=== PATIENT | female | born 1985 | race Caucasian/White ===

== ENCOUNTER 2018-01-02 14:27 | Emergency (ER) | payer SELFPAY ==
[~2018-01-02] VITALS: Ht 152.4 cm; Wt 50.0 kg
[2018-01-02 14:37] VITALS: BP 107/65; PULSE 105; RESP 15; TEMP 98.9; O2SAT 96; O2SAT 98
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
[2018-01-02] MEDS ORDERED: VANCOMYCIN INJ 1,000 MG in SODIUM CHLOR 0.9% 250 ML INJ 250 ML IV ONE (14:45)
[2018-01-02] MEDS ORDERED: SODIUM CHLOR 0.9% 1000 ML INJ 1,000 ML IV ONE ×2 (14:45→16:30)
[2018-01-02] MEDS ORDERED: SODIUM CHLORIDE 0.9% FLUSH 10 ML FLUSH IV FLUSH PRN (14:45)
[2018-01-02 15:32] VITALS: BP 124/90; PULSE 100; RESP 15; O2SAT 98
[2018-01-02 15:33] LABS: AUTOMATED NEUTROPHIL # 12.4 TH/MM3 (1.8-7.7); BASOPHIL % 0.2 % (0.0-2.0); EOSINOPHIL # 0.1 TH/MM3 (0-0.4); EOSINOPHIL % 0.8 % (0.0-4.0); HEMATOCRIT 37.1 % (35.0-46.0); HEMOGLOBIN 12.2 GM/DL (11.6-15.3); LYMPH % 10.7 % (9.0-44.0); LYMPHOCYTE # 1.7 TH/MM3 (1.0-4.8); MEAN CELL VOLUME 85.5 FL (80.0-100.0); MEAN CORPUSCULAR HEMOGLOBIN 28.1 PG (27.0-34.0); MEAN CORPUSCULAR HGB CONC 32.9 % (32.0-36.0); MEAN PLATELET VOLUME 7.6 FL (7.0-11.0); MONO % 8.1 % (0.0-8.0); MONOCYTE # 1.2 TH/MM3 (0-0.9); NEUT % 80.2 % (16.0-70.0); PLATELET COUNT 497 TH/MM3 (150-450); RED BLOOD COUNT 4.34 MIL/MM3 (4.00-5.30); RED CELL DISTRIBUTION WIDTH 13.9 % (11.6-17.2); WHITE BLOOD COUNT 15.5 TH/MM3 (4.0-11.0)
[2018-01-02 15:42] LABS: BACTERIA, URINE RARE /hpf; BILIRUBIN, URINE NEG (NEG); BLOOD, URINE NEG (NEG); GLUCOSE,URINE NEG (NEG); HYALINE CAST, URINE 3 /lpf (RARE); KETONE, URINE NEG (NEG); MUCUS URINE FEW /lpf (OCC); NITRITE,URINE NEG (NEG); SQUAMOUS EPITHELIAL CELL URINE 23 /hpf (0-5); URINE COLOR YELLOW (YELLW/STRAW); URINE LEUKOCYTE ESTERASE TRACE (NEG)
[2018-01-02 15:43] LABS: INTERNATIONAL NORMALIZED RATIO 1.1 RATIO; PROTHROMBIN TIME - PATIENT 10.9 SEC (9.8-11.6)
--- NOTE | 2018-01-02 16:19 | RADRPT ---
EXAM DATE: 01/02/2018 4:14 PM EDT AGE/SEX: 32 years / Female INDICATIONS: swollen 1st right digit. Unknown injury CLINICAL DATA: This is the patient's initial encounter. Patient reports that signs and symptoms have been present for 2 days and indicates a pain score of 5/10. MEDICAL/SURGICAL HISTORY: None. None. COMPARISON: No prior [place] exams available for comparison. FINDINGS: Bony structures are intact and in normal alignment. Osseous density is normal. Soft tissues are unre markable. No radiopaque foreign bodies seen. Small ossific density along the medial aspect of the fi rst proximal phalangeal bone CONCLUSION: Negative examination except for small ossific area along the medial edge of the first proximal phalan geal bone. Electronically signed by: Sean Enrique MD 01/02/2018 4:17 PM EDT
--- NOTE | 2018-01-02 16:21 | RADRPT ---
EXAM DATE: 01/02/2018 4:12 PM EDT AGE/SEX: 32 years / Female INDICATIONS: short of breath CLINICAL DATA: This is the patient's initial encounter. Patient reports that signs and symptoms have been present for 1 day and indicates a pain score of 0/10. MEDICAL/SURGICAL HISTORY: None. None. COMPARISON: No prior [place] exams available for comparison. FINDINGS: A single AP view of the chest demonstrates the lungs to be symmetrically aerated without evidence of mass, infiltrate or effusion except for platelike atelectasis in the midlung [place] bilaterally left greater than right. The cardiomediastinal contours are unremarkable. Osseous structures are intact. CONCLUSION: Platelike atelectasis left greater than right in the mid lung murillo. Electronically signed by: Sean Enrique MD 01/02/2018 4:20 PM EDT
[2018-01-02 16:24] LABS: ALBUMIN 3.2 GM/DL (3.4-5.0); AST (GOT) 7 U/L (15-37); BICARBONATE 28.4 MEQ/L (21.0-32.0); BLOOD UREA NITROGEN 10 MG/DL (7-18); CALCIUM 9.2 MG/DL (8.5-10.1); CHLORIDE 101 MEQ/L (98-107); CREATININE 0.61 MG/DL (0.50-1.00); GLOMERULAR FILTRATION RATE 113 ML/MIN (>89); GLUCOSE,RANDOM 108 MG/DL (74-106); SODIUM (NA) 137 MEQ/L (136-145)
[2018-01-02 16:25] LABS: ALT (GPT) 17 U/L (10-53)
[2018-01-02 16:27] LABS: ALKALINE PHOSPHATASE 67 U/L (45-117); TOTAL BILIRUBIN ADULT 0.4 MG/DL (0.2-1.0); TOTAL PROTEIN 7.5 GM/DL (6.4-8.2)
[2018-01-02 16:31] LABS: ACETAMINOPHEN LESS THAN 2.0 MCG/ML (10.0-30.0)
[2018-01-02] MEDS ORDERED: NALOXONE HCL 0.4 MG/ML AMP IV PUSH ONE (16:45)
[2018-01-02 18:00] VITALS: BP 116/69; PULSE 92; RESP 18; O2SAT 97
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
--- NOTE | 2018-01-02 22:20 | RADRPT ---
EXAM DATE: 01/02/2018 10:18 PM EDT AGE/SEX: 32 years / Female INDICATIONS: Patient is complaining of chest pain. CLINICAL DATA: This is the patient's initial encounter. Patient reports that signs and symptoms have been present for 3 days and indicates a pain score of 10/10. MEDICAL/SURGICAL HISTORY: None. None. COMPARISON: [facility] [place], CHEST SINGLE AP, 01/02/2018. . FINDINGS: There is bandlike opacity in the left midlung again seen slightly more patchy on the current study myers ggesting evolving airspace disease and atelectasis. Heart size normal. Osseous structures are intact. CONCLUSION: Increasing left midlung opacity. Electronically signed by: Darin López MD 01/02/2018 10:19 PM EDT
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
[2018-01-02] MEDS ORDERED: IOHEXOL 350 MG/ML 10 ML VIAL (for RAD DIAG) IVCONTRAST ONE (23:11)
--- NOTE | 2018-01-02 23:15 | RADRPT ---
EXAM DATE: 01/02/2018 11:05 PM EDT AGE/SEX: 32 years / Female INDICATIONS: Patient found unresponsive, possible overdose. CLINICAL DATA: This is the patient's initial encounter. Patient reports that signs and symptoms have been present for 1 day and indicates a pain score of Nonresponsive. MEDICAL/SURGICAL HISTORY: Non-responsive. Non-responsive. RADIATION DOSE: 56.35 CTDI (mGy) COMPARISON: No prior [place] exams available for comparison. TECHNIQUE: CT of the head without contrast. Using automated exposure control and adjustment of the mA and/or kV according to patient size, radiation dose was kept as low as reasonably achievable to ob tain optimal diagnostic quality images. FINDINGS: Cerebrum: The ventricles are normal for age. No evidence of midline shift, mass lesion, hemorrhage or acute infarction. No extraaxial fluid collections are seen. Posterior Fossa: The cerebellum and brainstem are intact. The 4th ventricle is midline. The cerebe llopontine angle is unremarkable. Extracranial: The visualized portion of the orbits is intact. Skull: The calvaria is intact. No evidence of skull fracture. CONCLUSION: 1. Unremarkable CT scan of the brain. Electronically signed by: Jairo Hatfield MD 01/02/2018 11:13 PM EDT
--- NOTE | 2018-01-02 23:16 | RADRPT ---
EXAM DATE: 01/02/2018 11:06 PM EDT AGE/SEX: 32 years / Female INDICATIONS: Patient found unresponsive, possible overdose. CLINICAL DATA: This is the patient's initial encounter. Patient reports that signs and symptoms have been present for 1 day and indicates a pain score of Nonresponsive. MEDICAL/SURGICAL HISTORY: Non-responsive. Non-responsive. RADIATION DOSE: 17.61 CTDI (mGy) COMPARISON: No prior [place] exams available for comparison. TECHNIQUE: Contiguous axial images were obtained using helical multirow detector technique. The vol umetric data was post-processed with multiplanar reconstruction in oblique axial, sagittal, and coron al planes. Using automated exposure control and adjustment of the mA and/or kV according to patient s ize, radiation dose was kept as low as reasonably achievable to obtain optimal diagnostic quality sharron ges. FINDINGS: Vertebrae: Normal vertebral body height. No acute bony fractures. Alignment: Normal. No subluxation. C2-3: The bony spinal canal is normal in size. No evidence of disc bulge or herniation. The neural foramina are bilaterally patent. C3-4: The bony spinal canal is normal in size. No evidence of disc bulge or herniation. The neural foramina are bilaterally patent. C4-5: The bony spinal canal is normal in size. No evidence of disc bulge or herniation. The neural foramina are bilaterally patent. C5-6: The bony spinal canal is normal in size. No evidence of disc bulge or herniation. The neural foramina are bilaterally patent. C6-7: The bony spinal canal is normal in size. No evidence of disc bulge or herniation. The neural foramina are bilaterally patent. C7-T1: The bony spinal canal is normal in size. No evidence of disc bulge or herniation. The neura l foramina are bilaterally patent. CONCLUSION: 1. Unremarkable exam for patient's age. Electronically signed by: Jairo Hatfield MD 01/02/2018 11:15 PM EDT
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
[2018-01-03] MEDS ORDERED: oxyCODONE/ACETAMINOPHEN 5 MG/325 MG TAB PO ONE
[2018-01-03] MEDS ORDERED: BACT800T5 PO (00:54)
[2018-01-03] MEDS ORDERED: AZIT250T3 PO (00:54)
== END 2018-01-03 06:17 | disposition home or self-care (01) ==
LOC: NEPD 14:27
DX: F19.10 Other psychoactive substance abuse, uncomplicated (principal); R41.82 Altered mental status, unspecified; R40.0 Somnolence; L08.9 Local infection of the skin and subcutaneous tissue, unspecified; B95.62 Methicillin resistant Staphylococcus aureus infection as the cause of diseases classified elsewhere; B95.0 Streptococcus, group A, as the cause of diseases classified elsewhere; S42.102A Fracture of unspecified part of scapula, left shoulder, initial encounter for closed fracture; S22.009A Unspecified fracture of unspecified thoracic vertebra, initial encounter for closed fracture; Y04.0XXA Assault by unarmed brawl or fight, initial encounter
CPT/HCPCS: 70450; 71045; 71260; 72125; 73030; 73630; 80053; 80307; 81001; 82550; 83605; 85025; 85610; 86403; 87040; 87070; 87077; 87086; 87186; 96365; 96366; 96375; 99285; J2310; J3370; J7030; J7050; L0200; L0484; Q9967; 87205